=== PATIENT | male | born 1970 | race Caucasian/White ===

== ENCOUNTER 2018-06-15 11:43 | Emergency (ER) | payer OTHER ==
--- NOTE | 2018-06-15 11:57 | PDOC ---
History of Present Illness - General Chief Complaint: Substance Abuse Stated Complaint: PAIN, WITHDRAWLS Time Seen by Provider: 06/15/18 11:57 History Source: Patient Exam Limitations: No Limitations - History of Present Illness Initial Comments: 06/15/18 12:45 CHIEF COMPLAINT: Withdrawal HISTORY OF PRESENT ILLNESS: This is a 47-year-old male with a history of mild intermittent asthma who presents complaining of withdrawal symptoms from opioids (Vicodin and oxycodone). He reports that he has had 20 surgeries in the past 10 years, including spinal fusion, shoulder surgery, and multiple corneal transplants, and that he became addicted to opioids and not contacts. Recognizing his addiction, he saw an referral specialist and was started on Suboxone 8 mg. He stopped taking this last week. Having withdrawal symptoms, he illegally purchased oxycodone and has been taking that since Tuesday. He reports body aches, nausea, and anxiety. He was seen at [facility] and given 1 dose of Ativan and discharged. He presents today hoping for detox treatment. Vital signs on arrival are unremarkable. REVIEW OF SYSTEMS: GENERAL/CONSTITUTIONAL: Generalized weakness. No fever or chills. HEAD, EYES, EARS, NOSE AND THROAT: No change in vision. No ear pain or discharge. No sore throat. CARDIOVASCULAR: No chest pain or palpitations. RESPIRATORY: No cough, wheezing, or shortness of breath. GASTROINTESTINAL: Nausea. No vomiting, diarrhea or constipation. GENITOURINARY: No dysuria, frequency, or change in urination. MUSCULOSKELETAL: No joint or muscle swelling or pain. No neck or back pain. SKIN: No rash or easy bruising. NEUROLOGIC: No headache, vertigo, loss of consciousness, or loss of sensation. PSYCHIATRIC: Anxiety, insomnia. ENDOCRINE: No increased thirst. No abnormal weight change. HEMATOLOGIC/LYMPHATIC: No anemia, easy bleeding, or history of blood clots. ALLERGIC/IMMUNOLOGIC: No hives or skin allergy. No latex allergy. PHYSICAL EXAM: GENERAL: The patient is awake, alert, and fully oriented, in no acute distress. HEAD: Normal with no signs of trauma. ENT: Pupils equal, round and reactive to light, extraocular movements intact, sclera anicteric, conjunctiva clear. Neck supple. LUNGS: Clear to auscultation bilaterally. Normal excursion. No respiratory distress or use of accessory muscles. CV: RRR, S1/S2, no MRG. Cap refill < 2 sec. ABDOMEN: Soft, non-distended, non-tender. EXTREMITIES: Normal range of motion, no edema. NEUROLOGICAL: Normal speech, normal gait. CN II-XII grossly intact. PSYCH: Anxious affect. SKIN: Warm, dry, normal turgor, no rashes or lesions noted. Past History - Past Medical History Allergies/Adverse Reactions: Allergies Allergy/AdvReac Type Severity Reaction Status Date / Time Penicillins Allergy Verified 06/15/18 11:48 Home Medications: Ambulatory Orders Buprenorphine/Naloxone [Suboxone 8Mg/2Mg Sl Film -] 1 each SL DAILY 06/15/18 Prednisone [Deltasone] 30 mg PO ASDIR 06/15/18 Asthma: Yes COPD: No - Suicide/Smoking/Psychosocial Hx Smoking History: Never smoked *Physical Exam - Vital Signs Last Vital Signs Temp Pulse Resp BP Pulse Ox 98.3 F 71 20 144/86 100 06/15/18 11:52 06/15/18 11:52 06/15/18 11:52 06/15/18 11:52 06/15/18 11:52 Medical Decision Making - Medical Decision Making 06/15/18 12:50 A/P: 47-year-old male with opioid withdrawal. Discussed with [facility]; patient will present there for evaluation. *DC/Admit/Observation/Transfer Diagnosis at time of Disposition: Opioid withdrawal - Discharge Dispostion Disposition: HOME Condition at time of disposition: Guarded Decision to Admit order: No - Referrals - Patient Instructions Printed Discharge Instructions: DI for Opioid Addiction Additional Instructions: Go directly to the detox facility at [address] [place] [address] for evaluation - Post Discharge Activity
[2018-06-15 12:02] VITALS: BP 144/86; PULSE 71; TEMP 98.3; BMI 29.0
== END 2018-06-15 12:51 | disposition home or self-care (01) ==
LOC: JER 11:43
DX: Z13.89 Encounter for screening for other disorder (principal); F11.23 Opioid dependence with withdrawal; J45.909 Unspecified asthma, uncomplicated
CPT/HCPCS: 99282-25

== ENCOUNTER 2018-06-15 15:16 | Inpatient (IN) | payer OTHER ==
[2018-06-15 17:03] VITALS: BMI 26.6
--- NOTE | 2018-06-15 18:54 | HP ---
COWS - Scale Resting Pulse: 0= [place] 80 or Below Sweatin= Chills/Flushing Restless Observation: 0= Sits Still Pupil Size: 1= Pupils >than Normal Bone or Joint Aches: 2= Severe Diffuse Aches Runny Nose/ Eye Tearin= None GI Upset > 30mins: 2= Nausea/Diarrhea Tremor Observation: 0= None Yawning Observation: 0= None Anxiety or Irritability: 2=Irritable/Anxious Goose Flesh Skin: 0=Smooth Skin COWS Score: 8 Admission ROS [facility] Chief Complaint: reports feeling weak, shaky , restless , insomnia , fatigue Allergies/Adverse Reactions: Allergies Allergy/AdvReac Type Severity Reaction Status Date / Time Penicillins Allergy Verified 06/15/18 11:48 History of Present Illness: pt here requesting detox for opioid use , reports last 10-12 yrs has had several surgeries and rx for Vicodin , last year had left knee , left shoulder 2016 , contacted addiction dr in [facility] , rx for suboxone for withdrawal , pt did not want to increase dose, tried self- tapering off , finished last one 1 week ago , took some Oxycodone latest Tuesday , took Valium 10 mg Tuesday night , nothing since except cannabis . Currently reporting severe anxiety . Reports he took 40 mg Prednisone Tuesday and yesterday and 30 mg today for poison yahaira . Went to [facility] yesterday , sent to [facility] , monitored given IVF and 1 dose of Ativan per pt . [facility] Reports current symptoms : reports feeling weak, shaky , restless , insomnia , fatigue , nausea and lack of appetite . utox today + THC , + BZO i-stop 03/19/2014 04/01/2014 HYDROCODON-ACETAMINOPH 7.5-300 50.0000 13 Ruben Menon 12/10/2013 12/10/2013 HYDROCODON-ACETAMINOPH 7.5-300 50.0000 13 Ruben Menon 02/14/2014 02/14/2014 HYDROCODON-ACETAMINOPH 7.5-300 50.0000 13 Ruben Menon 02/14/2014 03/05/2014 HYDROCODON-ACETAMINOPH 7.5-300 50.0000 13 Ruben Menon 11/01/2013 11/10/2013 HYDROCODON-ACETAMINOPH 7.5-300 50.0000 13 [facility] [place] 01/11/2014 01/12/2014 HYDROCODON-ACETAMINOPH 7.5-300 50.0000 13 Kayal, [place] 11/27/2013 11/29/2013 HYDROCODON-ACETAMINOPH 7.5-300 50.0000 13 [facility] [place] 01/11/2014 01/31/2014 HYDROCODON-ACETAMINOPH 7.5-300 50.0000 13 [facility] [place] 07/08/2014 07/09/2014 HYDROCODON-ACETAMINOPH 7.5-300 50.0000 13 Kayal, [place] 05/28/2014 05/28/2014 HYDROCODON-ACETAMINOPH 7.5-300 50.0000 13 Kayal, [place] 11/01/2013 11/01/2013 HYDROCODON-ACETAMINOPH 7.5-300 50.0000 13 [facility] [place] 11/01/2013 11/20/2013 HYDROCODON-ACETAMINOPH 7.5-300 50.0000 13 [facility] [place] 04/23/2014 05/16/2014 HYDROCODON-ACETAMINOPH 7.5-300 50.0000 13 [facility] [place] 03/19/2014 04/12/2014 HYDROCODON-ACETAMINOPH 7.5-300 50.0000 13 [facility] [place] 09/23/2014 09/23/2014 PROMETHAZINE-CODEINE SYRUP 180.0000 9 [facility] [place] 12/30/2015 12/30/2015 ALPRAZOLAM 0.5 MG TABLET 50.0000 25 Kayal, [place] 12/30/2015 01/28/2016 ALPRAZOLAM 0.5 MG TABLET 50.0000 25 Kayal, [place] 11/06/2015 12/01/2015 ALPRAZOLAM 0.5 MG TABLET 50.0000 25 Kayal, [place] 02/19/2016 02/19/2016 HYDROCODON-ACETAMINOPH 7.5-300 30.0000 30 Mesfin Burkett 03/24/2016 03/24/2016 HYDROCODON-ACETAMINOPH 7.5-300 30.0 30 MD SALVADOR, MESFIN 04/25/2016 04/25/2016 OXYCODONE-ACETAMINOPHEN 10-325 80.0 14 MD MELLO, EUNICE 04/25/2016 04/27/2016 OXYCODONE HCL ER 10 MG TABLET 30.0 15 MD MELLO, EUNICE 11/06/2015 11/06/2015 ALPRAZOLAM 0.5 MG TABLET 50.0000 25 Kayal, [place] 11/18/2014 11/18/2014 HYDROCODON-ACETAMINOPH 7.5-449 730.4025 34 [facility] [place] 09/23/2014 11/06/2014 PROMETHAZINE-CODEINE SYRUP 180.0000 9 Kayal, [place] 07/07/2015 07/07/2015 VICODIN ES 7.5-300 MG TABLET 100.0000 33 [facility] [place] 04/28/2015 04/28/2015 HYDROCODON-ACETAMINOPH 7.5-442 325.1448 25 Kayal, [place] 02/04/2015 02/05/2015 HYDROCODON-ACETAMINOPH 7.5-586 138.7361 25 [facility] [place] 06/04/2015 06/05/2015 VICODIN ES 7.5-300 MG TABLET 100.0000 25 Kayal, [place] 03/11/2015 03/17/2015 VICODIN ES 7.5-300 MG TABLET 100.0000 25 Kayal, [place] 10/05/2014 10/05/2014 HYDROCODON-ACETAMINOPH 7.5-300 50.0000 13 [facility] [place] 08/14/2015 08/14/2015 HYDROCODON-ACETAMINOPH 7.5-300 90.0000 90 Kayal, [place] 12/23/2014 12/23/2014 HYDROCODON-ACETAMINOPH 7.5-339 120.1127 25 [facility] [place] 09/23/2014 10/01/2014 PROMETHAZINE-CODEINE SYRUP 180.0000 9 Kayal, [place] 10/24/2014 10/24/2014 HYDROCODON-ACETAMINOPH 7.5-300 60.0000 20 Kayal, [place] 06/27/2014 06/27/2014 HYDROCODON-ACETAMINOPH 7.5-300 50.0000 13 [facility] [place] 05/28/2014 06/17/2014 HYDROCODON-ACETAMINOPH 7.5-300 50.0000 13 Kayal, [place] 03/19/2014 03/19/2014 HYDROCODON-ACETAMINOPH 7.5-300 50.0000 13 [facility] [place] 04/30/2014 04/30/2014 ALPRAZOLAM 0.5 MG TABLET 6.0000 2 [facility] [place] 01/11/2014 01/22/2014 HYDROCODON-ACETAMINOPH 7.5-300 50.0000 13 [facility] [place] 02/14/2014 02/24/2014 HYDROCODON-ACETAMINOPH 7.5-300 50.0000 13 [facility] [place] 12/20/2013 12/20/2013 HYDROCODON-ACETAMINOPH 7.5-300 50.0000 13 [facility] [place] 08/05/2014 08/05/2014 HYDROCODON-ACETAMINOPH 7.5-300 50.0000 13 [facility] [place] 05/28/2014 06/07/2014 HYDROCODON-ACETAMINOPH 7.5-300 50.0000 13 [facility] [place] 05/11/2016 05/11/2016 OXYCODONE-ACETAMINOPHEN 10-325 80.0 20 MD MELLO, EUNICE 05/28/2016 05/28/2016 OXYCODONE-ACETAMINOPHEN 10-325 80.0 20 MD MELLO, EUNICE 06/22/2016 06/22/2016 OXYCODONE-ACETAMINOPHEN 10-325 70.0 24 MD MELLO, EUNICE 07/23/2016 07/23/2016 OXYCODONE-ACETAMINOPHEN 10-325 20.0 5 MD TATO, MARIUM 05/05/2017 05/05/2017 OXYCODONE HCL 10 MG TABLET 16.0 4 MD ZOË, JUAN R 05/05/2017 05/10/2017 SUBOXONE 8 MG-2 MG SL FILM 5.0 5 MD ZOË, JUAN R 05/10/2017 05/11/2017 SUBOXONE 8 MG-2 MG SL FILM 10.0 10 MD ZOË, JUAN R 05/25/2017 05/25/2017 SUBOXONE 8 MG-2 MG SL FILM 22.0 22 MD ZOË, JUAN R 09/20/2017 09/20/2017 SUBOXONE 8 MG-2 MG SL FILM 90.0 30 MD ZOË, JUAN R 08/25/2017 08/25/2017 SUBOXONE 8 MG-2 MG SL FILM 30.0 30 MD CAMP PETER 07/28/2017 07/28/2017 SUBOXONE 8 MG-2 MG SL FILM 60.0 30 MD CAMP PETER 07/07/2017 07/07/2017 SUBOXONE 8 MG-2 MG SL FILM 40.0 20 MD CAMP PETER 06/14/2017 06/14/2017 SUBOXONE 8 MG-2 MG SL FILM 44.0 22 MD CAMP PETER pmhx : asthma since childhood ( NH, NI ) pneumonia 2014 on Albuterol and Advair , keratoconus pshx : left knee arthroscopic x 2 ( snowboarding injury 2002 ) and right x 2 ( injured [address] football high school ) , left shoulder arthro x 2 ( 2008 first surgery , 2016 surgery ) , right arthroscopic sx x 1 ( 2006 - labral tear , heavy physical labor ) , spinal fusion l3-4 2015 ,jaw surgery teen years , 3 corneal transplants (1994 right , 1999 left , right 2013) left inguinal hernia 2004 . 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 w/ son legal : denies rx verified at [facility] for Prednisone taper and meds adjusted accordingly Exam Limitations: No Limitations - Ebola screening Have you traveled outside of the country in the last 21 days: No Have you had contact with anyone from an Ebola affected area: No Have you been sick,other than usual withdrawal symptoms: No - Review of Systems Constitutional: See HPI EENT: reports: Cataracts Respiratory: reports: Other (asthma) Cardiac: reports: No Symptoms Reported GI: reports: See HPI, Nausea, Poor Appetite : reports: No Symptoms Reported Musculoskeletal: reports: See HPI, Back Pain, Joint Pain, Muscle Pain, Muscle Weakness Integumentary: reports: Rash, Other (poison yahaira) Neuro: reports: Headache Endocrine: reports: No Symptoms Reported Psychiatric: reports: No Sypmtoms Reported, Judgement Intact, Orientated x3 Other Systems: Reviewed and Negative Patient History - Patient Medical History Hx Asthma: Yes Hx Chronic Obstructive Pulmonary Disease (COPD): No - Smoking Cessation Smoking history: Never smoked - Substances Abused Oxycontin Route: Oral Frequency: 1-2 times per week Amount used: 120MG Age of first use: 45 Date of Last Use: 06/10/18 VALIUM Route: Oral Frequency: Daily Amount used: 10MG Age of first use: 47 Date of Last Use: 06/10/18 Family Disease History - Family Disease History Family Disease History: Other: Father (spine surgery ) Admission Physical Exam [facility] - Vital Signs Vital Signs: Vital Signs - 24 hr 06/15/18 17:01 Temperature 97.8 F Pulse Rate 56 L Respiratory 18 Rate Blood Pressure 121/87 - Physical General Appearance: Yes: Nourished, Appropriately Dressed, Mild Distress, Anxious HEENTM: Yes: Within Normal Limits, EOMI, Hearing grossly Normal, Normal ENT Inspection, Normocephalic, Normal Voice, WENDIE, Pharynx Normal, Other (scarring from previous eye surgery) Respiratory: Yes: Within Normal Limits, Chest Non-Tender, Lungs Clear, Normal Breath Sounds, No Respiratory Distress, No Accessory Muscle Use Neck: Yes: Within Normal Limits, No masses,lesions,Nodules, Trachea in good position Cardiology: Yes: Within Normal Limits, Regular Rhythm, Regular Rate Abdominal: Yes: Within Normal Limits, Normal Bowel Sounds, Non Tender, Flat, Soft Back: Yes: Within Normal Limits, Normal Inspection Musculoskeletal: Yes: Back pain, Joint Stiffness, Muscle Pain, Other (decreased AROM left shoulder , left knee , stiffness ed shoulders/ knees) Extremities: Yes: Within Normal Limits, Normal Capillary Refill, Normal Inspection, Normal Range of Motion, Non-Tender Neurological: Yes: Within Normal Limits, Fully Oriented, Alert, Motor Strength 5 /5, Normal Mood/Affect, Normal Response Integumentary: Yes: Within Normal Limits, Normal Color, Dry, Warm Lymphatic: Yes: Within Normal Limits Cleared for Admission [facility] - Detox or Rehab [facility] Level of Care: Medically Supervised Detox Regimen/Protocol: Valium [facility] Breath Alcohol Content Breath Alcohol Content: 0 Urine Drug Screen - Results Drug Screen Negative: No Urine Drug Screen Results: THC-Marijuana, BZO-Benzodiazepines
[2018-06-15] MEDS ORDERED: MAG HYDROX/AL HYDROX/SIMETH 30 ML UNIT-DOSE CUP PO PRN (19:07)
[2018-06-15] MEDS ORDERED: P-EPHED 60MG/TRIPROLIDI 2.5MG TABLET PO PRN (19:07)
[2018-06-15] MEDS ORDERED: guaiFENesin/D-METHORPHAN HB 10 ML UNIT-DOSE CUPS PO PRN (19:07)
[2018-06-15] MEDS ORDERED: LOPERAMIDE HCL 2 MG CAPSULE PO PRN (19:07)
[2018-06-15] MEDS ORDERED: MAGNESIUM CITRATE 300 ML BOTTLE PO PRN (19:07)
[2018-06-15] MEDS ORDERED: MAGNESIUM HYDROX 2400MG/30ML ORAL SUSPENSION 30 ML CUP PO PRN (19:07)
[2018-06-15] MEDS ORDERED: MENTHOL/PHENOL 1 EACH UD MM PRN (19:07)
[2018-06-15] MEDS ORDERED: cloNIDine HCL 0.1 MG TABLET PO PRN (19:09)
[2018-06-15] MEDS ORDERED: METHOCARBAMOL 500 MG TABLET PO PRN (19:11)
[2018-06-15] MEDS ORDERED: ALBUTEROL SO4 0.083% IH SOL 2.5 MG/3 ML VIAL.NEB. NEB PRN (19:18)
[2018-06-15] MEDS ORDERED: diazePAM 5 MG TABLET PO ONE (19:29)
[2018-06-15] MEDS: THIAMINE HCL 100 MG TABLET (FP) PO SCH (23:20)
[2018-06-15] MEDS: diazePAM 5 MG TABLET PO SCH (23:20)
[2018-06-16] MEDS: MELATONIN 5 MG TABLETS PO PRN ×2 (01:07→22:18)
[2018-06-16] MEDS: diazePAM 5 MG TABLET PO PRN ×5 (01:08→20:54)
[2018-06-16 03:39] LABS: URINE APPEARANCE SLCLOUDY; URINE BILIRUBIN NEGATIVE (<2.0 mg/dL); URINE COLOR LTYELLOW; URINE GLUCOSE (UA) NEGATIVE (NEGATIVE); URINE KETONE NEGATIVE (NEGATIVE); URINE LEUK ESTERASE NEGATIVE (NEGATIVE); URINE NITRITE NEGATIVE (NEGATIVE); URINE PROTEIN NEGATIVE (NEGATIVE); URINE UROBILINOGEN NEGATIVE mg/dL (0.2-1.0)
[2018-06-16] MEDS: diazePAM 5 MG TABLET PO SCH ×3 (05:37→22:18)
--- NOTE | 2018-06-16 08:02 | EKG ---
Test Reason : Blood Pressure : / mmHG Vent. Rate : 047 BPM Atrial Rate : 047 BPM P-R Int : 152 ms QRS Dur : 092 ms QT Int : 460 ms P-R-T Axes : 040 042 035 degrees QTc Int : 407 ms POOR DATA QUALITY, INTERPRETATION MAY BE ADVERSELY AFFECTED SINUS BRADYCARDIA OTHERWISE NORMAL ECG NO PREVIOUS ECGS AVAILABLE Confirmed by VAZQUEZ CHRISTIANSON MD ([id number]) on 06/16/2018 8:01:46 AM Referred By: Confirmed By:VAZQUEZ CHRISTIANSON MD
--- NOTE | 2018-06-16 09:26 | CONSULT ---
[facility] Psychiatric Consult - Data Date of interview: 06/16/18 Admission source: [facility] Identifying data: Patient is a 47 year old male, , father of three, domiciled, and is employed by the [employer]. This is patient' s first admission to detox at [facility]. Patient admitted to for opioid dependence. Substance Abuse History: History of opioid dependence. Medical History: asthma since childhood ( NH, NI ) pneumonia 2015 on Albuterol and Advair , keratoconus. history of knee, shoulder, and spinal surgery. 3 corneal transplant Psychiatric History: Patient denies h/o psychiatric hospitalization, outpatient care, and suicide attempt. Pt. reports poor sleep. He reports past history of accepting Melatonin, ambien, benadryl, and trazodone for insomnia but states the medications were not effective. Physical/Sexual Abuse/Trauma History: denies. Mental Status Exam - Mental Status Exam Alert and Oriented to: Time, Place, Person Cognitive Function: Good Patient Appearance: Well Groomed Mood: Hopeful Affect: Appropriate, Mood Congruent Patient Behavior: Talkative, Appropriate, Cooperative Speech Pattern: Clear, Appropriate Voice Loudness: Normal Thought Process: Intact, Goal Oriented Thought Disorder: Not Present Hallucinations: Denies Suicidal Ideation: Denies Homicidal Ideation: Denies Insight/Judgement: Poor Sleep: Poorly Appetite: Fair Muscle strength/Tone: Normal Gait/Station: Other (Did not observe patient's gait.) Psychiatric Findings - Problem List ([place] 1, 2,3) (1) Opioid dependence Current Visit: Yes Status: Acute (2) Substance-induced sleep disorder Current Visit: Yes Status: Acute - Initial Treatment Plan Initial Treatment Plan: Psychoeducation provided. Detoxification in progress. Will order Belsomra 10mg qhs. Benefits and side effects discussed. Verbal consent given.
[2018-06-16] MEDS ORDERED: predniSONE 10 MG TABLET (UD) PO ONE (10:00)
[2018-06-16] MEDS: PRENATAL VITAMINS W/ FOLIC ACID TABLET (FP) PO SCH (10:06)
[2018-06-16 10:24] LABS: HEMATOCRIT 40.1 % (35.4-49); HEMOGLOBIN 13.5 GM/dL (11.7-16.9); MCH 28.4 pg (25.7-33.7); MCHC 33.7 g/dl (32.0-35.9); MEAN CELL VOLUME 84.3 fl (80-96); MEAN PLT VOLUME 8.9 fl (7.5-11.1); PLATELET COUNT 319 K/MM3 (134-434); RBC 4.76 M/mm3 (4.00-5.60); RDW 12.9 % (11.9-15.9); WHITE BLOOD COUNT 10.5 K/mm3 (4.0-10.0)
[2018-06-16 10:54] LABS: ALBUMIN 4.1 g/dl (3.4-5.0); ALK PHOS 92 U/L (45-117); ANION GAP 10 MMOL/L (8-16); BILIRUBIN,TOTAL 1.4 mg/dL (0.2-1); BLOOD UREA NITROGEN 18 mg/dL (7-18); CALCIUM 9.7 mg/dL (8.5-10.1); CHLORIDE 104 mmol/L (98-107); CO2 22 mmol/L (21-32); GLUCOSE,RANDOM 99 mg/dL (74-106); POTASSIUM 3.6 mmol/L (3.5-5.1); SGOT/AST 21 U/L (15-37); SGPT/ALT 37 U/L (13-61); SODIUM 137 mmol/L (136-145); TOT PROT 7.3 g/dl (6.4-8.2)
--- NOTE | 2018-06-16 12:02 | PN ---
BHS COWS - Scale Resting Pulse: 0= ID 80 or Below Sweatin= Chills/Flushing Restless Observation: 1= Difficult to Sit Still Pupil Size: 2= Moderately Dilated Bone or Joint Aches: 1= Mild Discomfort Runny Nose/ Eye Tearin= Nasal Congestion GI Upset > 30mins: 0= None Tremor Observation of Outstretched Hands: 0= None Yawning Observation: 0= None Anxiety or Irritability: 1=Feels Anxious/Irritable Goose Flesh Skin: 0=Smooth Skin COWS Score: 7 BHS Progress Note (SOAP) Subjective: PATIENT PRESENTS WITH MILD ANXIETY, CHILLS, NASAL CONGESTION, BODY ACHES. Objective: 06/16/18 12:00 Vital Signs Temperature 98.1 F 06/16/18 09:21 Pulse Rate 64 06/16/18 09:21 Respiratory Rate 16 06/16/18 09:21 Blood Pressure 114/57 L 06/16/18 09:21 O2 Sat by Pulse Oximetry (%) Laboratory Tests 06/15/18 06/16/18 06/16/18 23:21 07:00 07:00 WBC 10.5 H RBC 4.76 Hgb 13.5 Hct 40.1 MCV 84.3 MCH 28.4 MCHC 33.7 RDW 12.9 Plt Count 319 MPV 8.9 Sodium 137 Potassium 3.6 Chloride 104 Carbon Dioxide 22 Anion Gap 10 BUN 18 Creatinine 1.0 Creat Clearance w eGFR > 60 Random Glucose 99 Calcium 9.7 Total Bilirubin 1.4 H AST 21 ALT 37 Alkaline Phosphatase 92 Total Protein 7.3 Albumin 4.1 Urine Color Ltyellow Urine Appearance Slcloudy Urine pH 8.0 Ur Specific [place] 1.010 Urine Protein Negative Urine Glucose (UA) Negative Urine Ketones Negative Urine Blood Negative Urine Nitrite Negative Urine Bilirubin Negative Urine Urobilinogen Negative Ur Leukocyte Esterase Negative PE: SKIN WARM, +COLD SWEATS RESP: CTA BL GI SOFT, NT, ND CAR S1S2 EXT NO EDEMA A/P: WITHDRAWAL SYNDROME CONTINUE TO MONITOR CLINICALLY DETOX PER PROTOCOL Assessment: 06/16/18 12:02 A/P: WITHDRAWAL SYNDROME Plan: CONTINUE TO MONITOR CLINICALLY DETOX PER PROTOCOL 06/16/18 12:02
[2018-06-16] MEDS: hydrOXYzine PAMOATE 25 MG CAPSULE (FP) PO PRN (18:11)
[2018-06-16] MEDS ORDERED: cloNIDine HCL 0.1 MG TABLET PO PRN (18:48)
--- NOTE | 2018-06-16 18:52 | PN ---
BHS Progress Note (SOAP) Subjective: pt reports feeling uncomfortable, some tremors, msucle cramps , difficulty sleeping , severe anxiety - saw psychiatry today , new meds ordered . Has not used prn meds except Diazepam x once @ 16:30 today per RN report . Vital Signs - 24 hr 06/16/18 06/16/18 06/16/18 01:19 06:39 09:21 Temperature 98.6 F 98.1 F Pulse Rate 61 64 Respiratory 18 18 16 Rate Blood Pressure 111/64 114/57 L 06/16/18 06/16/18 13:01 17:37 Temperature 98.2 F 98.2 F Pulse Rate 80 57 L Respiratory 16 18 Rate Blood Pressure 124/76 134/70 Objective: resting in bed , awake , alert , oriented x 3 06/16/18 18:50 Assessment: benzo withdrawal, opioid dependence 06/16/18 18:50 Plan: discussed w/ patient at length buprenorphine taper , does not want at this time . encouraged to use prn meds and advise nursing of any change . verbalizes understanding and agreement w/ POC
[2018-06-16] MEDS: SUVOREXANT 10 MG TABLET PO PRN (22:18)
[2018-06-16] MEDS: THIAMINE HCL 100 MG TABLET (FP) PO SCH (22:18)
[2018-06-17] MEDS: diazePAM 5 MG TABLET PO PRN ×3 (05:21→17:26)
[2018-06-17] MEDS: diazePAM 5 MG TABLET PO SCH ×2 (10:43→22:13)
[2018-06-17] MEDS: PRENATAL VITAMINS W/ FOLIC ACID TABLET (FP) PO SCH (10:43)
[2018-06-17] MEDS: predniSONE 20 MG TABLET (UD) PO SCH (10:43)
[2018-06-17] MEDS: IBUPROFEN 400 MG TABLET (FP) PO PRN (10:47)
--- NOTE | 2018-06-17 11:48 | PN ---
[facility] COWS - Scale Resting Pulse: 0= [place] 80 or Below Sweatin=Flushed/Facial Moisture Restless Observation: 1= Difficult to Sit Still Pupil Size: 0= Normal to Room Light Bone or Joint Aches: 2= Severe Diffuse Aches Runny Nose/ Eye Tearin= Nasal Congestion GI Upset > 30mins: 2= Nausea/Diarrhea Tremor Observation of Outstretched Hands: 1= Tremor [place], Not Seen Yawning Observation: 0= None Anxiety or Irritability: 1=Feels Anxious/Irritable Goose Flesh Skin: 0=Smooth Skin COWS Score: 10 BHS Progress Note (SOAP) Subjective: Generalized weakness, decreased appetite, generalized pain, interrupted sleep Objective: 06/17/18 11:46 Vital Signs 06/17/18 06/17/18 06:00 10:09 Temperature 97.9 F 97.5 F L Pulse Rate 63 63 Respiratory 18 16 Rate Blood Pressure 103/66 127/86 Laboratory Last Values WBC 10.5 K/mm3 (4.0-10.0) H 06/16/18 07:00 RBC 4.76 M/mm3 (4.00-5.60) 06/16/18 07:00 Hgb 13.5 GM/dL (11.7-16.9) 06/16/18 07:00 Hct 40.1 % (35.4-49) 06/16/18 07:00 MCV 84.3 fl (80-96) 06/16/18 07:00 MCH 28.4 pg (25.7-33.7) 06/16/18 07:00 MCHC 33.7 g/dl (32.0-35.9) 06/16/18 07:00 RDW 12.9 % (11.9-15.9) 06/16/18 07:00 Plt Count 319 K/MM3 (134-434) 06/16/18 07:00 MPV 8.9 fl (7.5-11.1) 06/16/18 07:00 Sodium 137 mmol/L (136-145) 06/16/18 07:00 Potassium 3.6 mmol/L (3.5-5.1) 06/16/18 07:00 Chloride 104 mmol/L (98-107) 06/16/18 07:00 Carbon Dioxide 22 mmol/L (21-32) 06/16/18 07:00 Anion Gap 10 MMOL/L (8-16) 06/16/18 07:00 BUN 18 mg/dL (7-18) 06/16/18 07:00 Creatinine 1.0 mg/dL (0.55-1.3) 06/16/18 07:00 Creat Clearance w eGFR > 60 (>60) 06/16/18 07:00 Random Glucose 99 mg/dL (74-106) 06/16/18 07:00 Calcium 9.7 mg/dL (8.5-10.1) 06/16/18 07:00 Total Bilirubin 1.4 mg/dL (0.2-1) H 06/16/18 07:00 AST 21 U/L (15-37) 06/16/18 07:00 ALT 37 U/L (13-61) 06/16/18 07:00 Alkaline Phosphatase 92 U/L (45-117) 06/16/18 07:00 Total Protein 7.3 g/dl (6.4-8.2) 06/16/18 07:00 Albumin 4.1 g/dl (3.4-5.0) 06/16/18 07:00 Urine Color Ltyellow 06/15/18 23:21 Urine Appearance Slcloudy 06/15/18 23:21 Urine pH 8.0 (5.0-8.0) 06/15/18 23:21 Ur Specific [place] 1.010 (1.001-1.035) 06/15/18 23:21 Urine Protein Negative (NEGATIVE) 06/15/18 23:21 Urine Glucose (UA) Negative (NEGATIVE) 06/15/18 23:21 Urine Ketones Negative (NEGATIVE) 06/15/18 23:21 Urine Blood Negative (NEGATIVE) 06/15/18 23:21 Urine Nitrite Negative (NEGATIVE) 06/15/18 23:21 Urine Bilirubin Negative (<2.0 mg/dL) 06/15/18 23:21 Urine Urobilinogen Negative mg/dL (0.2-1.0) 06/15/18 23:21 Ur Leukocyte Esterase Negative (NEGATIVE) 06/15/18 23:21 RPR Titer Nonreactive (NONREACTIVE) 06/16/18 07:00 Labs noted Assessment: 06/17/18 11:47 Withdrawal sx Plan: Continue detox Instructed patient to drink more fluids, pitcher ordered
[2018-06-17] MEDS: ACETAMINOPHEN 325 MG TABLET (FP) PO PRN (14:18)
[2018-06-17] MEDS ORDERED: diphenhydrAMINE HCL 25 MG CAPSULE (FP) PO PRN (19:41)
[2018-06-17] MEDS: SUVOREXANT 10 MG TABLET PO PRN (22:13)
[2018-06-17] MEDS: THIAMINE HCL 100 MG TABLET (FP) PO SCH (22:13)
[2018-06-17] MEDS: LORATADINE 10 MG TABLET PO SCH (22:13)
[2018-06-18] MEDS: diazePAM 5 MG TABLET PO PRN ×4 (00:30→17:37)
[2018-06-18] MEDS: ACETAMINOPHEN 325 MG TABLET (FP) PO PRN (02:49)
[2018-06-18] MEDS: hydrOXYzine PAMOATE 25 MG CAPSULE (FP) PO PRN ×2 (05:31→22:28)
[2018-06-18] MEDS: IBUPROFEN 400 MG TABLET (FP) PO PRN (05:31)
[2018-06-18] MEDS: PRENATAL VITAMINS W/ FOLIC ACID TABLET (FP) PO SCH (09:38)
[2018-06-18] MEDS: LORATADINE 10 MG TABLET PO SCH (09:38)
[2018-06-18] MEDS: diazePAM 5 MG TABLET PO SCH ×2 (09:38→22:28)
[2018-06-18] MEDS: predniSONE 20 MG TABLET (UD) PO SCH (09:38)
--- NOTE | 2018-06-18 16:33 | PN ---
[facility] Progress Note (SOAP) Subjective: body aches muscle cramp tremor sweat trouble sleep at night Objective: 06/18/18 16:33 Vital Signs Temperature 98.6 F 06/18/18 15:08 Pulse Rate 70 06/18/18 15:08 Respiratory Rate 18 06/18/18 15:08 Blood Pressure 131/79 06/18/18 15:08 O2 Sat by Pulse Oximetry (%) Laboratory Last Values WBC 10.5 K/mm3 (4.0-10.0) H 06/16/18 07:00 RBC 4.76 M/mm3 (4.00-5.60) 06/16/18 07:00 Hgb 13.5 GM/dL (11.7-16.9) 06/16/18 07:00 Hct 40.1 % (35.4-49) 06/16/18 07:00 MCV 84.3 fl (80-96) 06/16/18 07:00 MCH 28.4 pg (25.7-33.7) 06/16/18 07:00 MCHC 33.7 g/dl (32.0-35.9) 06/16/18 07:00 RDW 12.9 % (11.9-15.9) 06/16/18 07:00 Plt Count 319 K/MM3 (134-434) 06/16/18 07:00 MPV 8.9 fl (7.5-11.1) 06/16/18 07:00 Sodium 137 mmol/L (136-145) 06/16/18 07:00 Potassium 3.6 mmol/L (3.5-5.1) 06/16/18 07:00 Chloride 104 mmol/L (98-107) 06/16/18 07:00 Carbon Dioxide 22 mmol/L (21-32) 06/16/18 07:00 Anion Gap 10 MMOL/L (8-16) 06/16/18 07:00 BUN 18 mg/dL (7-18) 06/16/18 07:00 Creatinine 1.0 mg/dL (0.55-1.3) 06/16/18 07:00 Creat Clearance w eGFR > 60 (>60) 06/16/18 07:00 Random Glucose 99 mg/dL (74-106) 06/16/18 07:00 Calcium 9.7 mg/dL (8.5-10.1) 06/16/18 07:00 Total Bilirubin 1.4 mg/dL (0.2-1) H 06/16/18 07:00 AST 21 U/L (15-37) 06/16/18 07:00 ALT 37 U/L (13-61) 06/16/18 07:00 Alkaline Phosphatase 92 U/L (45-117) 06/16/18 07:00 Total Protein 7.3 g/dl (6.4-8.2) 06/16/18 07:00 Albumin 4.1 g/dl (3.4-5.0) 06/16/18 07:00 Urine Color Ltyellow 06/15/18 23:21 Urine Appearance Slcloudy 06/15/18 23:21 Urine pH 8.0 (5.0-8.0) 06/15/18 23:21 Ur Specific [place] 1.010 (1.001-1.035) 06/15/18 23:21 Urine Protein Negative (NEGATIVE) 06/15/18 23:21 Urine Glucose (UA) Negative (NEGATIVE) 06/15/18 23:21 Urine Ketones Negative (NEGATIVE) 06/15/18 23:21 Urine Blood Negative (NEGATIVE) 06/15/18 23:21 Urine Nitrite Negative (NEGATIVE) 06/15/18 23:21 Urine Bilirubin Negative (<2.0 mg/dL) 06/15/18 23:21 Urine Urobilinogen Negative mg/dL (0.2-1.0) 06/15/18 23:21 Ur Leukocyte Esterase Negative (NEGATIVE) 06/15/18 23:21 RPR Titer Nonreactive (NONREACTIVE) 06/16/18 07:00 lab noted Assessment: 06/18/18 16:33 withdrawal sx Plan: continue detox
[2018-06-18] MEDS: THIAMINE HCL 100 MG TABLET (FP) PO SCH (22:28)
[2018-06-18] MEDS: SUVOREXANT 10 MG TABLET PO PRN (22:29)
[2018-06-19] MEDS: MELATONIN 5 MG TABLETS PO PRN (02:02)
[2018-06-19] MEDS: hydrOXYzine PAMOATE 25 MG CAPSULE (FP) PO PRN (02:40)
[2018-06-19 09:12] VITALS: BP 129/92; PULSE 61; TEMP 96.4
--- NOTE | 2018-06-19 09:25 | PN ---
[facility] Progress Note Note: Was on Suboxone but weaned self off of it.
[2018-06-19] MEDS: LORATADINE 10 MG TABLET PO SCH (09:28)
[2018-06-19] MEDS: PRENATAL VITAMINS W/ FOLIC ACID TABLET (FP) PO SCH (09:28)
--- NOTE | 2018-06-19 09:31 | DS ---
[facility] Detox Discharge Summary Admission Date: 06/15/18 Discharge Date: 06/19/18 - History Present History: Opioid Dependence Additional Comments: Patient admitted with opiate withdrawal symptoms. States stopped taking Suboxone. - Physical Exam Results Vital Signs: Vital Signs Temperature 96.4 F L 06/19/18 09:12 Pulse Rate 61 06/19/18 09:12 Respiratory Rate 18 06/19/18 09:12 Blood Pressure 129/92 06/19/18 09:12 O2 Sat by Pulse Oximetry (%) Pertinent Admission Physical Exam Findings: Patient sdmitted with s/s opiate withdrawal. Laboratory Tests 06/15/18 06/16/18 06/16/18 23:21 07:00 07:00 WBC 10.5 H RBC 4.76 Hgb 13.5 Hct 40.1 MCV 84.3 MCH 28.4 MCHC 33.7 RDW 12.9 Plt Count 319 MPV 8.9 Sodium 137 Potassium 3.6 Chloride 104 Carbon Dioxide 22 Anion Gap 10 BUN 18 Creatinine 1.0 Creat Clearance w eGFR > 60 Random Glucose 99 Calcium 9.7 Total Bilirubin 1.4 H AST 21 ALT 37 Alkaline Phosphatase 92 Total Protein 7.3 Albumin 4.1 Urine Color Ltyellow Urine Appearance Slcloudy Urine pH 8.0 Ur Specific [place] 1.010 Urine Protein Negative Urine Glucose (UA) Negative Urine Ketones Negative Urine Blood Negative Urine Nitrite Negative Urine Bilirubin Negative Urine Urobilinogen Negative Ur Leukocyte Esterase Negative RPR Titer 06/16/18 07:00 WBC RBC Hgb Hct MCV MCH MCHC RDW Plt Count MPV Sodium Potassium Chloride Carbon Dioxide Anion Gap BUN Creatinine Creat Clearance w eGFR Random Glucose Calcium Total Bilirubin AST ALT Alkaline Phosphatase Total Protein Albumin Urine Color Urine Appearance Urine pH Ur Specific Maxwell Urine Protein Urine Glucose (UA) Urine Ketones Urine Blood Urine Nitrite Urine Bilirubin Urine Urobilinogen Ur Leukocyte Esterase RPR Titer Nonreactive Labs reviewed. Patient did not receive Suboxone while in detox and was not given a prescription. - Treatment Hospital Course: Detox Protocol Followed, Detoxed Safely, Responded well, Discharged Condition Good - Medication Discharge Medications: Ambulatory Orders Buprenorphine/Naloxone [Suboxone 8Mg/2Mg Sl Film -] 1 each SL DAILY 06/15/18 Prednisone [Deltasone] 30 mg PO ASDIR 06/15/18 - Diagnosis (1) Opioid withdrawal Status: Acute (2) Substance-induced sleep disorder Status: Acute - AMA Did Patient Leave Against Medical Advice: No
[2018-06-19] MEDS ORDERED: predniSONE 10 MG TABLET (UD) PO SCH (10:00)
[2018-06-19] MEDS ORDERED: diazePAM 5 MG TABLET PO SCH (10:00)
== END 2018-06-19 10:26 | disposition home or self-care (01) | DRG 773 ==
LOC: YASAS 15:16 → Y6N 19:25
PROC: HZ2ZZZZ Detoxification Services for Substance Abuse Treatment (ICD-10-PCS; principal; 2018-06-15)
DX: F11.23 Opioid dependence with withdrawal (principal); F19.282 Other psychoactive substance dependence with psychoactive substance-induced sleep disorder; M54.5 Low back pain; G89.29 Other chronic pain; L23.7 Allergic contact dermatitis due to plants, except food; J45.909 Unspecified asthma, uncomplicated; Z94.7 Corneal transplant status; Z88.0 Allergy status to penicillin
CPT/HCPCS: 36415; 80053; 81003; 85027; 86593; 93005; 93010; J0735